=== PATIENT | female | born 1965 | race Caucasian/White ===

== ENCOUNTER 2017-09-04 11:40 | Emergency (ER) | payer MEDICARE, OTHER ==
[~2017-09-04] VITALS: Ht 175.3 cm; Wt 101.4 kg
[~2017-09-04 11:40] MED LIST: ASPI-556 PO; CALC25 PO; CLOT15C TP; FERR-89 PO; INSLAN SQ; INSU100V SQ; LISI-660 PO; PERCT PO; PRAV40TA4 PO; SANTO TP
[2017-09-04] MEDS ORDERED: DILT60SR PO (11:47)
[2017-09-04] MEDS ORDERED: VITAD1000 PO (11:47)
[2017-09-04] MEDS ORDERED: OMEP20 PO (11:47)
[2017-09-04] MEDS ORDERED: FURO40 PO (11:47)
[2017-09-04 11:53] LABS: GLUCOSE,POINT OF CARE 106 MG/DL (70-110)
[2017-09-04 14:41] VITALS: BP 149/91
== END 2017-09-04 14:44 | disposition home or self-care (01) ==
LOC: EMS 11:41
DX: R19.03 Right lower quadrant abdominal swelling, mass and lump (principal); L02.224 Furuncle of groin; E11.9 Type 2 diabetes mellitus without complications; I10 Essential (primary) hypertension; Z79.4 Long term (current) use of insulin; Z87.891 Personal history of nicotine dependence
CPT/HCPCS: 82962; 99282

== ENCOUNTER 2023-08-11 11:31 | Emergency (ER) | payer MEDICARE, OTHER ==
[~2023-08-11] VITALS: Ht 160 cm; Wt 91.8 kg
[~2023-08-11 11:31] MED LIST changes: -CALC25 PO; +CHOL100018 PO; -CLOT15C TP; +DILT60SR PO; -FERR-89 PO; +FERR325T27 PO; +FURO40 PO; -LISI-660 PO; +LISI-892 PO; +OMEP20 PO; -PERCT PO; -SANTO TP
[2023-08-11 11:36] VITALS: BP 142/73; PULSE 85; RESP 16; TEMP 97.9
[2023-08-11] MEDS ORDERED: SODI650T33 PO (11:38)
[2023-08-11] MEDS ORDERED: DULA0.75 SQ (11:38)
[2023-08-11] MEDS ORDERED: ROPI0.2535 PO (11:38)
[2023-08-11] MEDS ORDERED: CLOP75TA60 PO (11:38)
[2023-08-11] MEDS ORDERED: ACETAMINOPHEN 500 MG TABLET PO ONE (11:45)
[2023-08-11] MEDS ORDERED: CEPHALEXIN MONOHYDRATE 500 MG CAPSULE PO ONE (11:45)
[2023-08-11] MEDS ORDERED: ACET-3385 PO (11:47)
[2023-08-11] MEDS ORDERED: CEPH-558 PO (11:47)
== END 2023-08-11 12:03 | disposition home or self-care (01) ==
LOC: EMS 11:35
DX: L03.011 Cellulitis of right finger (principal); E11.9 Type 2 diabetes mellitus without complications; I10 Essential (primary) hypertension; Z87.891 Personal history of nicotine dependence; Z98.890 Other specified postprocedural states
CPT/HCPCS: 82962; 99283

== ENCOUNTER 2023-08-24 11:45 | Emergency (ER) | payer OTHER ==
[~2023-08-24] VITALS: Ht 175.3 cm; Wt 84.5 kg
[~2023-08-24 11:45] MED LIST changes: +ACET-3385 PO; +CEPH-558 PO; +CLOP75TA60 PO; +DULA0.75 SQ; +ROPI0.2535 PO; +SODI650T33 PO
[2023-08-24 11:49] VITALS: TEMP 98.2
[2023-08-24] MEDS ORDERED: DOXYCYCLINE HYCLATE 100 MG TABLET PO ONE (13:00)
[2023-08-24] MEDS ORDERED: DOXY-354 PO (13:02)
[2023-08-24 13:20] VITALS: BP 149/94; PULSE 76; RESP 18
[2023-08-24 17:16] LABS: GLUCOMETER DEV NAME(LOC) ER.6; GLUCOSE,POINT OF CARE 100 MG/DL (70-110)
== END 2023-08-24 13:20 | disposition home or self-care (01) ==
LOC: EMS 11:45
DX: L03.011 Cellulitis of right finger (principal); E11.9 Type 2 diabetes mellitus without complications; I11.0 Hypertensive heart disease with heart failure; I50.9 Heart failure, unspecified; Z87.891 Personal history of nicotine dependence; Z98.890 Other specified postprocedural states
CPT/HCPCS: 26010; 82962; 99284

== ENCOUNTER 2025-04-11 10:25 | Inpatient (IN) | payer OTHER ==
[~2025-04-11] VITALS: Ht 175.3 cm; Wt 87.7 kg
[~2025-04-11 10:25] MED LIST changes: -ACET-3385 PO; -CEPH-558 PO; -CLOP75TA60 PO; +CLOP75TA83 PO; +DOXY-354 PO; -FURO40 PO; +FURO40TA6 PO; +OMEP-148 PO; -OMEP20 PO; +PRAV-59 PO; -PRAV40TA4 PO
[2025-04-11] MEDS ORDERED: ATOR20TA65 PO (10:41)
[2025-04-11] MEDS ORDERED: DILT-18 PO (10:41)
[2025-04-11] MEDS ORDERED: FEBU40T PO (10:41)
[2025-04-11] MEDS ORDERED: CLOP75TA32 PO (10:41)
[2025-04-11] MEDS ORDERED: FURO20TA4 PO (10:41)
[2025-04-11] MEDS ORDERED: LISI10TA24 PO (10:41)
[2025-04-11 10:45] LABS: COVID AG,FIA SOURCE NASAL SWAB
[2025-04-11 11:17] LABS: INFLUENZA TYPE A NEGATIVE FOR TYPE A (NEGATIVE); INFLUENZA TYPE B NEGATIVE FOR TYPE B (NEGATIVE)
[2025-04-11 11:22] LABS: RAPID GROUP A STREP NEGATIVE (NEGATIVE)
[2025-04-11 11:29] LABS: SARS-COV2 (COVID) ANTIGEN,FIA Positive (Negative)
[2025-04-11] MEDS: ACETAMINOPHEN 500 MG TABLET PO ONE (11:34)
[2025-04-11 11:50] LABS: PLATELET COUNT (AUTO) 240 K/uL (150-450); RED BLOOD CELL COUNT(AUTO) 4.45 MIL/uL (4.00-5.20); RED CELL DISTRIBUTION WIDTH 15.6 % (11.5-14.5); WHITE BLOOD COUNT (AUTO) 13.2 K/uL (4.5-11.0)
[2025-04-11 12:00] LABS: CALCIUM, TOTAL 8.6 mg/dL (8.8-10.5); CREATININE 2.41 mg/dL (0.60-1.30); GLOMERULAR FILTR. RATE CALC 21.0 mL/min (>60); GLUCOSE,RANDOM 130.0 mg/dL (70-110); SODIUM SERUM 136.0 mmol/L (136-145); UREA NITROGEN, BLOOD 52.0 mg/dL (7-18)
[2025-04-11] MEDS ORDERED: 0.9% SODIUM CHLORIDE 10 ML SYRINGE IVP PRN (13:45)
[2025-04-11] MEDS ORDERED: ONDANSETRON HCL 4 MG/2 ML VIAL IVP PRN (13:45)
[2025-04-11] MEDS: *CLINICAL-CEFEPIME DOSING CLINICAL ONE (13:55)
[2025-04-11] MEDS: SODIUM CHLORIDE 0.9% 2,650 ML IV ONE (14:07)
[2025-04-11 14:21] LABS: CALCIUM, TOTAL 8.3 mg/dL (8.8-10.5); CREATININE 2.31 mg/dL (0.60-1.30); GLOMERULAR FILTR. RATE CALC 22 mL/min (>60); GLUCOSE,RANDOM 109 mg/dL (70-110); SODIUM SERUM 137 mmol/L (136-145); UREA NITROGEN, BLOOD 52 mg/dL (7-18)
[2025-04-11 14:25] LABS: ASPARTATE AMINOTRANSFERASE 27 U/L (15-37); LACTATE DEHYDROGENASE 193 U/L (81-234); TOTAL PROTEIN, SERUM 7.2 g/dL (6.4-8.2)
[2025-04-11 14:42] LABS: LACTIC ACID 0.9 mmol/L (0.4-2.0)
[2025-04-11 16:00] VITALS: BP 130/86; PULSE 86; RESP 21; TEMP 99.1; O2SAT 98
[2025-04-11] MEDS ORDERED: SODIUM CHLORIDE 0.9% 500 ML IV ONE (16:02)
[2025-04-11] MEDS: CEFEPIME HCL 1 GM in DEXTROSE 5%-WATER 50 ML IV SCH (16:18)
[2025-04-11] MEDS: HEPARIN SODIUM,PORCINE 5,000 UNITS/ML VIAL SQ SCH (16:18)
[2025-04-11] MEDS: ACETAMINOPHEN 325 MG TABLET PO PRN (20:23)
[2025-04-11] MEDS: DOCUSATE SODIUM 100 MG CAPSULE PO SCH (20:28)
[2025-04-11 20:45] VITALS: BP 141/88; PULSE 84; RESP 20; TEMP 98.8; O2SAT 97
[2025-04-11] MEDS ORDERED: DEXTROSE 50%-WATER 25 GM/50 ML SYRINGE IVP PRN (21:30)
[2025-04-11] MEDS: INSULIN LISPRO 100 UNITS/ML SQ PRN (21:39)
[2025-04-11] MEDS: BENZONATATE 100 MG CAPSULE PO PRN (21:46)
[2025-04-12 04:22] VITALS: BP 135/73; PULSE 87; RESP 20; TEMP 99.3; O2SAT 94
[2025-04-12 06:15] LABS: GLUCOMETER DEV NAME(LOC) 4E.2; GLUCOSE,POINT OF CARE 167 MG/DL (70-110)
[2025-04-12 06:31] LABS: PLATELET COUNT (AUTO) 216 K/uL (150-450); RED BLOOD CELL COUNT(AUTO) 3.94 MIL/uL (4.00-5.20); RED CELL DISTRIBUTION WIDTH 15.1 % (11.5-14.5); WHITE BLOOD COUNT (AUTO) 14.8 K/uL (4.5-11.0)
[2025-04-12 06:36] LABS: GLUCOMETER DEV NAME(LOC) 6S.2; GLUCOSE,POINT OF CARE 127 MG/DL (70-110)
[2025-04-12 08:34] VITALS: BP 129/73; PULSE 80; RESP 18; TEMP 98.4; O2SAT 98
[2025-04-12 12:30] LABS: GLUCOMETER DEV NAME(LOC) 6S.2; GLUCOSE,POINT OF CARE 134 MG/DL (70-110)
[2025-04-12] MEDS: REMDESIVIR 200 MG in SODIUM CHLORIDE 0.9% 250 ML IV ONE (13:23)
[2025-04-12 15:21] VITALS: BP 121/64; PULSE 82; RESP 18; TEMP 99.7; O2SAT 98
[2025-04-12 19:07] VITALS: BP 110/58; PULSE 86; RESP 18; TEMP 98.6; O2SAT 95
[2025-04-12 19:36] LABS: GLUCOMETER DEV NAME(LOC) 4E.2; GLUCOSE,POINT OF CARE 150 MG/DL (70-110)
[2025-04-12 19:36] LABS: GLUCOMETER DEV NAME(LOC) 6N.1C; GLUCOSE,POINT OF CARE 106 MG/DL (70-110)
[2025-04-12] MEDS ORDERED: MAGNESIUM SULFATE 2 GM/WATER 50 ML IV PRN (20:15)
[2025-04-12] MEDS ORDERED: MAGNESIUM SULFATE 4 GM/WATER 100 ML IV PRN (20:15)
[2025-04-12 21:26] LABS: GLUCOMETER DEV NAME(LOC) 4E.2; GLUCOSE,POINT OF CARE 173 MG/DL (70-110)
[2025-04-13 04:01] VITALS: BP 134/76; PULSE 78; RESP 18; TEMP 98.6; O2SAT 98
[2025-04-13 06:56] LABS: GLUCOMETER DEV NAME(LOC) 4E.2; GLUCOSE,POINT OF CARE 90 MG/DL (70-110)
[2025-04-13 08:17] VITALS: BP 144/76; PULSE 75; RESP 18; TEMP 97.8; O2SAT 98
[2025-04-13] MEDS: MAGNESIUM OXIDE 400 MG TABLET PO PRN (09:37)
[2025-04-13] MEDS: AZITHROMYCIN 500 MG TABLET PO ONE (12:54)
[2025-04-13] MEDS: REMDESIVIR 100 MG in SODIUM CHLORIDE 0.9% 250 ML IV SCH (13:19)
[2025-04-13] MEDS: CefTRIAXone 1 GM/DEXTROSE 50 ML IV SCH (16:02)
[2025-04-13 17:51] LABS: GLUCOMETER DEV NAME(LOC) 6N.1C; GLUCOSE,POINT OF CARE 104 MG/DL (70-110)
[2025-04-13 20:34] VITALS: BP 133/76; PULSE 73; RESP 18; TEMP 98.6; O2SAT 99
[2025-04-14 04:00] VITALS: BP 148/78; PULSE 70; RESP 18; TEMP 98.4; O2SAT 99
[2025-04-14 07:02] LABS: PLATELET COUNT (AUTO) 225 K/uL (150-450); RED BLOOD CELL COUNT(AUTO) 3.98 MIL/uL (4.00-5.20); RED CELL DISTRIBUTION WIDTH 15.4 % (11.5-14.5); WHITE BLOOD COUNT (AUTO) 11.2 K/uL (4.5-11.0)
[2025-04-14 07:27] LABS: ASPARTATE AMINOTRANSFERASE 26.0 U/L (15-37); CREATININE 1.39 mg/dL (0.60-1.30); GLOMERULAR FILTR. RATE CALC 39.0 mL/min (>60); GLUCOSE,RANDOM 90.0 mg/dL (70-110); SODIUM SERUM 140.0 mmol/L (136-145); TOTAL PROTEIN, SERUM 6.4 g/dL (6.4-8.2); UREA NITROGEN, BLOOD 34.0 mg/dL (7-18)
[2025-04-14 07:50] LABS: CALCIUM, TOTAL 8.4 mg/dL (8.8-10.5)
[2025-04-14 07:55] LABS: GLUCOMETER DEV NAME(LOC) 6S.2; GLUCOSE,POINT OF CARE 134 MG/DL (70-110)
[2025-04-14 07:55] LABS: GLUCOMETER DEV NAME(LOC) 6S.2; GLUCOSE,POINT OF CARE 90 MG/DL (70-110)
[2025-04-14 08:00] VITALS: BP 145/76; PULSE 67; RESP 19; TEMP 98; O2SAT 99
[2025-04-14] MEDS: AZITHROMYCIN 250 MG TABLET PO SCH (08:09)
[2025-04-14] MEDS ORDERED: AZIT-164 PO (12:43)
[2025-04-14] MEDS ORDERED: BENZ-227 PO (12:43)
[2025-04-14] MEDS ORDERED: LINA5TAB PO (12:44)
[2025-04-15 07:41] LABS: GLUCOMETER DEV NAME(LOC) 6S.2; GLUCOSE,POINT OF CARE 89 MG/DL (70-110)
== END 2025-04-14 16:00 | disposition home or self-care (01) | DRG 720 ==
LOC: EMS 10:25 → EDH 13:32 → 6N 15:52
PROVIDERS: ADMIT Internal Medicine; ATTEND Internal Medicine
PROC: XW033E5 Introduction of Remdesivir Anti-infective into Peripheral Vein, Percutaneous Approach, New Technology Group 5 (ICD-10-PCS; principal; 2025-04-13)
DX: A41.89 Other specified sepsis (principal); I13.0 Hypertensive heart and chronic kidney disease with heart failure and stage 1 through stage 4 chronic kidney disease, or unspecified chronic kidney disease; U07.1 COVID-19; I50.9 Heart failure, unspecified; R09.02 Hypoxemia; E11.22 Type 2 diabetes mellitus with diabetic chronic kidney disease; N18.4 Chronic kidney disease, stage 4 (severe); E78.5 Hyperlipidemia, unspecified; Z87.891 Personal history of nicotine dependence; N17.9 Acute kidney failure, unspecified
CPT/HCPCS: 71045; 80048; 80053; 82040; 82962; 83605; 83615; 83735; 84145; 85025; 85730; 87040; 87430; 87804; 93005; 99285; J0692; J0696; J1644; J7040; J7050; J7060; 36415-L1; 36415-TC